=== PATIENT | female | born 1990 | race Caucasian/White ===

== ENCOUNTER 2019-10-11 16:32 | Emergency (ER) | payer SELFPAY ==
--- NOTE | 2019-10-11 17:22 | EDM.PDOC ---
ED HPI GENERAL MEDICAL PROBLEM - General Chief Complaint: ENT Problem Stated Complaint: INFECTION IN TOOTH Time Seen by Provider: 10/11/19 16:45 Source of Information: Reports: Patient History Limitations: Reports: No Limitations - History of Present Illness INITIAL COMMENTS - FREE TEXT/NARRATIVE: states she has had tooth ache for the past 3 days , getting worse right upper wisdom tooth still present infection , caries noted in the tooth area Now pain and swelling has spread to the right cheek took 3 tab of tylenol with no relieve - Related Data Allergies Allergy/AdvReac Type Severity Reaction Status Date / Time Penicillins Allergy Hives Verified 10/11/19 16:52 Sulfa (Sulfonamide Allergy Hives Verified 10/11/19 16:52 Antibiotics) Home Meds: Home Meds Chlorhexidine Gluconate [Peridex] 10 ml MM TID #473 mouthwash 10/11/19 [Rx] Clindamycin HCl 300 mg PO TID #30 capsule 10/11/19 [Rx] Hydrocodone/Acetaminophen [[place] 5-325 Tablet] 1 each PO Q6HR #6 tablet 10/11/19 [Rx] ED ROS ENT - Review of Systems Review Of Systems: Comprehensive ROS is negative, except as noted in HPI. ED EXAM, ENT - Physical Exam Exam: See Below Exam Limited By: No Limitations General Appearance: Alert, WD/WN Eye Exam: Bilateral Eye: EOMI, PERRL Ears: Normal External Exam Nose: Normal Mucousa Mouth/Throat: Dental Pain, Dental Tenderness (right upper Molar), Gum Swelling. No: Muffled Voice, Throat Pain, Throat Swelling, Tonsillar Erythema, Tonsillar Exudates, Tonsillar Swelling Head: Atraumatic, Normocephalic Neck: Supple, Non-Tender, Lymphadenopathy (R) (right sided) Respiratory/Chest: Lungs Clear, Normal Breath Sounds Cardiovascular: Regular Rate, Rhythm Neurological: Alert, Oriented, CN II-XII Intact Psychiatric: Normal Affect Course - Vital Signs Last Recorded V/S: Last Vital Signs Temp 37.2 C 10/11/19 16:40 Pulse 98 10/11/19 16:40 Resp 17 10/11/19 16:40 BP 117/69 10/11/19 16:40 Pulse Ox 99 10/11/19 16:40 Departure - Departure Time of Disposition: 17:30 Disposition: Home, Self-Care 01 Clinical Impression: Dental caries extending into dentin, Gingivitis, acute, non-plaque induced - Discharge Information *PRESCRIPTION DRUG MONITORING PROGRAM REVIEWED*: Not Applicable *COPY OF PRESCRIPTION DRUG MONITORING REPORT IN PATIENT LOUANN: Not Applicable Referrals: Juan Hines MD [Primary Care Provider] - Additional Instructions: Make appointment to see dentist as soon as possible Sepsis Event Note (ED) - Evaluation Sepsis Screening Result: No Definite Risk - Focused Exam Vital Signs: Vital Signs Temp Pulse Resp BP Pulse Ox 10/11/19 16:40 37.2 C 98 17 117/69 99
== END 2019-10-11 17:33 | disposition home or self-care (01) ==
LOC: FB.ED 16:32
DX: K02.9 Dental caries, unspecified (principal); K05.01 Acute gingivitis, non-plaque induced; Z88.0 Allergy status to penicillin; Z88.2 Allergy status to sulfonamides
CPT/HCPCS: 99282

== ENCOUNTER 2020-08-15 23:26 | Emergency (ER) | payer MEDICAID ==
[2020-08-15] MEDS ORDERED: Ibuprofen 600 MG Tab PO ONE (23:45)
--- NOTE | 2020-08-15 23:48 | EDM.PDOC ---
ED HPI GENERAL MEDICAL PROBLEM - General Chief Complaint: Lower Extremity Injury/Pain Stated Complaint: broken toe Time Seen by Provider: 08/15/20 23:45 Source of Information: Reports: Patient History Limitations: Reports: No Limitations - History of Present Illness INITIAL COMMENTS - FREE TEXT/NARRATIVE: Patient accidentally kicked her couch, heard a snap and is now complaining of left 5th toe pain. No other injuries. 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 ED EXAM, GENERAL - Physical Exam Exam: See Below Exam Limited By: No Limitations General Appearance: Alert, WD/WN, No Apparent Distress Throat/Mouth: No Airway Compromise Head: Atraumatic, Normocephalic Respiratory/Chest: No Respiratory Distress Peripheral Pulses: 3+: Dorsalis Pedis (L) Extremities: Normal Capillary Refill, Other (tenderness and swelling to left 5th toe) Neurological: Alert, Oriented, Normal Cognition, No Motor/Sensory Deficits Psychiatric: Normal Affect, Normal Mood Skin Exam: Warm, Dry, Intact Course - Vital Signs Last Recorded V/S: Last Vital Signs Temp 37.1 C 08/15/20 23:27 Pulse 92 08/15/20 23:27 Resp 18 08/15/20 23:27 BP 118/79 08/15/20 23:27 Pulse Ox 99 08/15/20 23:27 - Orders/Labs/Meds Orders: Active Orders 24 hr Category Date Time Status Toes Fifth Digit Lt T4 [CR] Stat Exams 08/15/20 23:41 Ordered Meds: Medications Discontinued Medications Generic Name Dose Route Start Last Admin Trade Name Drea PRN Reason Stop Dose Admin Ibuprofen 600 mg 08/15/20 23:45 08/15/20 23:49 Ibuprofen 600 Mg Tab PO 08/15/20 23:46 600 mg ONETIME ONE Administration - Radiology Interpretation Free Text/Narrative:: Left 5th Toe Xray: proximal phalanx fracture. (ED provider interpretation) - Re-Assessments/Exams Free Text/Narrative Re-Assessment/Exam: 08/15/20 23:55 left 4th & 5th toes paradise taped. Departure - Departure Time of Disposition: 23:55 Disposition: Home, Self-Care 01 Condition: Good Clinical Impression: Toe fracture, left Qualifiers: Encounter type: initial encounter Toe: lesser toe Fracture type: closed Phalanx: proximal Fracture alignment: displaced Qualified Code(s): S92.512A - Displaced fracture of proximal phalanx of left lesser toe(s), initial encounter for closed fracture - Discharge Information *PRESCRIPTION DRUG MONITORING PROGRAM REVIEWED*: No *COPY OF PRESCRIPTION DRUG MONITORING REPORT IN PATIENT LOUANN: Not Applicable Instructions: Toe Fracture, [id number], Crutch Use, Adult, [id number] Referrals: PCP,None [Primary Care Provider] - Forms: ED Department Discharge Additional Instructions: Take Ibuprofen as needed. Elevate the foot. Ice the area affected. Take OTC Ibuprofen 600 mg every 6 hours as needed to control the pain. Weight bear as tolerated. Follow up with your primary physician in 1 week. Sepsis Event Note (ED) - Evaluation Sepsis Screening Result: No Definite Risk - Focused Exam Vital Signs: Vital Signs Temp Pulse Resp BP Pulse Ox 08/15/20 23:27 37.1 C 92 18 118/79 99 - My Orders Last 24 Hours: My Active Orders 08/15/20 23:41 Toes Fifth Digit Lt T4 [CR] Stat - Assessment/Plan Last 24 Hours: My Active Orders 08/15/20 23:41 Toes Fifth Digit Lt T4 [CR] Stat
--- NOTE | 2020-08-18 10:14 | CR ---
LEFT FIFTH TOE INDICATION: Injury - kicked furniture. Four views of the left toes were obtained 08/15/20 - no comparisons. There is an oblique fracture through the proximal phalanx of the fifth toe extending from the mid shaft into the distal metaphysis with medial angulation at the fracture site and lateral offset of the distal fracture fragment of approximately 1 mm. There also appears to be plantar offset of the distal fracture fragment of approximately 1 mm. No other significant bone or joint abnormality was identified of an acute nature. There was noted what appears to be a fracture through the proximal metaphysis of the fifth metatarsal with endosteal sclerosis compatible with a healing fracture site. MTDD
== END 2020-08-16 00:11 | disposition home or self-care (01) ==
LOC: FB.ED 23:26
DX: S92.512A Displaced fracture of proximal phalanx of left lesser toe(s), initial encounter for closed fracture (principal); Z88.0 Allergy status to penicillin; Z88.2 Allergy status to sulfonamides; W22.8XXA Striking against or struck by other objects, initial encounter
CPT/HCPCS: 73660-T4; 99282; 99283-25; A9270-GY

== ENCOUNTER 2020-09-06 07:44 | Emergency (ER) | payer MEDICAID ==
[2020-09-06] MEDS ORDERED: Sodium Chloride 0.9% 1,000 ML IV ONE (08:05)
[2020-09-06] MEDS ORDERED: Ondansetron 4 MG/2 ML SDV IVPUSH PRN (08:07)
[2020-09-06] MEDS ORDERED: Doxycycline 100 MG in Sodium Chloride 0.9% 100 ML IV ONE (08:10)
[2020-09-06] MEDS ORDERED: Ketorolac 30 MG/ML SDV IVPUSH ONE (08:12)
--- NOTE | 2020-09-06 08:14 | EDM.PDOC ---
ED HPI GENERAL MEDICAL PROBLEM - General Chief Complaint: Respiratory Problem Stated Complaint: POSSIBLE SINUS INFECTION Time Seen by Provider: 09/06/20 07:50 Source of Information: Reports: Patient, Old Records, Provider History Limitations: Reports: No Limitations - History of Present Illness INITIAL COMMENTS - FREE TEXT/NARRATIVE: 2 week h/o upper respiratory symptoms including sinus pain, congestion, cough, fever, anorexia, N/V. She was tested for COVID yesterday and was negative. Onset: Gradual Treatments MANAGER DISCOVERY: Reports: Acetaminophen, Aspirin, NSAIDS Face/Facial Pain Score (Numeric/FACES): 8 - Related Data Allergies Allergy/AdvReac Type Severity Reaction Status Date / Time Penicillins Allergy Hives Verified 10/11/19 16:52 Sulfa (Sulfonamide Allergy Hives Verified 10/11/19 16:52 Antibiotics) Home Meds: Home Meds Cyclobenzaprine [Flexeril] 10 mg PO BEDTIME 08/15/20 [History] Doxycycline [Vibramycin] 100 mg PO BID #13 cap 09/06/20 [Rx] Ondansetron [Zofran ODT] 4 mg PO Q6H PRN #20 tab.dis 09/06/20 [Rx] Past Medical History - Past Health History Medical/Surgical History: Denies 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: Musculoskeletal History: Reports: Fibromyalgia Social & Family History - Family History Family Medical History: No Pertinent Family History - Caffeine Use Caffeine Use: Reports: Coffee, Soda ED ROS GENERAL - Review of Systems Review Of Systems: See Below Constitutional: Reports: Fever, Malaise HEENT: Reports: Sinus Problem, Throat Pain Respiratory: Reports: Cough, Sputum Cardiovascular: Reports: No Symptoms Endocrine: Reports: No Symptoms GI/Abdominal: Reports: Anorexia, Nausea, Vomiting : Reports: No Symptoms Musculoskeletal: Reports: Muscle Pain, Muscle Stiffness Skin: Reports: No Symptoms Neurological: Reports: No Symptoms Psychiatric: Reports: No Symptoms Hematologic/Lymphatic: Reports: No Symptoms Immunologic: Reports: No Symptoms ED EXAM, GENERAL - Physical Exam Exam: See Below Exam Limited By: No Limitations General Appearance: Alert, WD/WN, Mild Distress Nose: No Blood, Nasal Tenderness, Nasal Swelling, Nasal Drainage, Other (purlent discharge) Throat/Mouth: Inflammation Head: Atraumatic Neck: No: Lymphadenopathy (R), Lymphadenopathy (L), Tender Lateral, Thyromegaly Respiratory/Chest: No Respiratory Distress, Lungs Clear Cardiovascular: Normal Peripheral Pulses, Regular Rate, Rhythm, No Edema, No Murmur Peripheral Pulses: 2+: Radial (L), Radial (R), Dorsalis Pedis (L), Dorsalis Pedis (R) Neurological: Alert, Oriented Psychiatric: Anxious Skin Exam: Warm, Dry, Intact Lymphatic: No Adenopathy Course - Vital Signs Last Recorded V/S: Last Vital Signs Temp 37.3 C 09/06/20 07:45 Pulse 114 H 09/06/20 07:45 Resp 20 09/06/20 07:45 BP 119/78 09/06/20 07:45 Pulse Ox 95 09/06/20 07:45 - Orders/Labs/Meds Orders: Active Orders 24 hr Category Date Time Status Ondansetron [Zofran] Med 09/06/20 08:07 Active 4 mg IVPUSH Q4H PRN Medication Orders Ondansetron HCl (Ondansetron 4 Mg/2 Ml Sdv) 4 mg IVPUSH Q4H PRN PRN Reason: Nausea/Vomiting Last Admin: 09/06/20 08:20 Dose: 4 mg Documented by: [facility]: Medications Generic Name Dose Route Start Last Admin Trade Name Freq PRN Reason Stop Dose Admin Ondansetron HCl 4 mg 09/06/20 08:07 09/06/20 08:20 Ondansetron 4 Mg/2 Ml Sdv IVPUSH 4 mg Q4H PRN Administration Nausea/Vomiting Discontinued Medications Generic Name Dose Route Start Last Admin Trade Name Freq PRN Reason Stop Dose Admin Sodium Chloride 1,000 mls @ 999 mls/hr 09/06/20 08:05 09/06/20 08:15 Normal Saline IV 09/06/20 09:05 999 mls/hr .BOLUS ONE Administration Doxycycline Hyclate 100 mg/ 100 mls @ 100 mls/hr 09/06/20 08:10 09/06/20 08:38 Sodium Chloride IV 09/06/20 09:09 100 mls/hr ONETIME ONE Administration Ketorolac Tromethamine 30 mg 09/06/20 08:12 09/06/20 08:20 Ketorolac 30 Mg/Ml Sdv IVPUSH 09/06/20 08:13 30 mg ONETIME ONE Administration Departure - Departure Time of Disposition: 10:15 Disposition: Home, Self-Care 01 Condition: Good Clinical Impression: Sinusitis - Discharge Information *PRESCRIPTION DRUG MONITORING PROGRAM REVIEWED*: Not Applicable *COPY OF PRESCRIPTION DRUG MONITORING REPORT IN PATIENT LOUANN: Not Applicable Prescriptions: Doxycycline [Vibramycin] 100 mg PO BID #13 cap Ondansetron [Zofran ODT] 4 mg PO Q6H PRN #20 tab.dis PRN Reason: Nausea Instructions: Coping with Quitting Smoking, Sinusitis, Adult, [id number] Referrals: Juan Hines MD [Primary Care Provider] - Forms: ED Department Discharge Sepsis Event Note (ED) - Evaluation Sepsis Screening Result: No Definite Risk - Focused Exam Vital Signs: Vital Signs Temp Pulse Resp BP Pulse Ox 09/06/20 07:45 37.3 C 114 H 20 119/78 95 - Problem List & Annotations (1) Bacterial sinusitis SNOMED Code(s): 724497663 Code(s): J32.9 - CHRONIC SINUSITIS, UNSPECIFIED; B96.89 - OTH BACTERIAL AGENTS THE CAUSE OF DISEASES CLASSD [id number] Status: Acute Current Visit: Yes - Problem List Review Problem List Initiated/Reviewed/Updated: Yes - My Orders Last 24 Hours: My Active Orders 09/06/20 08:07 Ondansetron [Zofran] 4 mg IVPUSH Q4H PRN - Assessment/Plan Last 24 Hours: My Active Orders 09/06/20 08:07 Ondansetron [Zofran] 4 mg IVPUSH Q4H PRN
== END 2020-09-06 10:15 | disposition home or self-care (01) ==
LOC: FB.ED 07:44
DX: J32.9 Chronic sinusitis, unspecified (principal); Z88.0 Allergy status to penicillin; Z88.2 Allergy status to sulfonamides
CPT/HCPCS: 96365; 96375; 99283-25; J1885; J2405; J3490; J7030

== ENCOUNTER 2020-09-07 12:01 | Emergency (ER) | payer MEDICAID ==
[2020-09-07] MEDS ORDERED: Sodium Chloride 0.9% 1,000 ML IV ONE (12:41)
--- NOTE | 2020-09-07 12:47 | EDM.PDOC ---
ED HPI GENERAL MEDICAL PROBLEM - General Stated Complaint: SINUS INF-CLOGGED EAR ETC Time Seen by Provider: 09/07/20 12:44 Source of Information: Reports: Patient, Provider History Limitations: Reports: No Limitations - History of Present Illness INITIAL COMMENTS - FREE TEXT/NARRATIVE: 30-year-old lady came to the emergency department for evaluation of upper respiratory/sinus infection. She was seen via telemedicine last week at the primary care physician's office and tested negative for Covid. She came into the emergency department yesterday and was found to have purulent sinus discharge and diagnosed with bacterial sinusitis. Secondary to allergies to penicillins and sulfonamides she was started on doxycycline. She returned today because of increased pain in her ears bilaterally, right greater than left. Decreased hearing bilaterally, right greater than left. And subjective swelling of her right temporal area. She continues to have nausea and vomiting. 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: Musculoskeletal History: Reports: Fibromyalgia Social & Family History - Family History Family Medical History: No Pertinent Family History - Caffeine Use Caffeine Use: Reports: Coffee ED ROS GENERAL - Review of Systems Review Of Systems: See Below Constitutional: Reports: Fever, Chills HEENT: Reports: Ear Pain, Nose Pain, Throat Pain Respiratory: Reports: Cough Cardiovascular: Reports: No Symptoms Endocrine: Reports: No Symptoms GI/Abdominal: Reports: Constipation, Nausea, Vomiting : Reports: No Symptoms Musculoskeletal: Reports: Joint Pain, Muscle Pain Skin: Reports: Erythema Neurological: Reports: No Symptoms Psychiatric: Reports: No Symptoms Hematologic/Lymphatic: Reports: No Symptoms Immunologic: Reports: No Symptoms ED EXAM, GENERAL - Physical Exam Exam: See Below Exam Limited By: No Limitations General Appearance: Alert, WD/WN, Anxious Ears: Other (Bilateral tympanic membranes are bulging, erythema, intact) Ear Exam: Bilateral Ear: Erythema, TM Red, TM Bulging Nose: Nasal Tenderness Throat/Mouth: Inflammation Neck: No: Lymphadenopathy (R) Respiratory/Chest: No Respiratory Distress, Lungs Clear Cardiovascular: Normal Peripheral Pulses, Regular Rate, Rhythm, No Edema Neurological: Alert, Oriented Psychiatric: Anxious Skin Exam: Warm, Dry Course - Vital Signs Text/Narrative:: Rapid strep test of oropharynx was negative. CT scan of the sinuses showed mild mucosal thickening in the maxillary sinuses with moderate opacification of the ethmoid air cells. There was no mastoid pathology and no air-fluid levels noted. She received 1 L normal saline. Patient instructed to continue to take doxycycline and use antihistamine and nasal steroids as directed. Patient was given Zofran for nausea yesterday. - Orders/Labs/Meds Orders: Active Orders 24 hr Category Date Time Status Max Facial Sinus wo Cont [CT] Stat Exams 09/07/20 12:40 Taken Labs: Laboratory Tests 09/07/20 09/07/20 Range/Units 12:45 12:48 WBC 8.0 (3.0-10.3) x10-3/uL RBC 3.96 (3.60-5.20) x10(6)uL Hgb 12.5 (11.4-15.5) g/dL Hct 37.4 (34.2-48.2) % MCV 94.4 (76.7-100.5) fL MCH 31.6 (23.9-33.9) pg MCHC 33.5 (31.9-34.8) g/dL RDW 12.0 L (12.3-16.5) % Plt Count 234 (151-488) x10(3)uL MPV 9.0 (7.1-12.4) fL Neut % (Auto) 73.2 (30.8-76.2) % Lymph % (Auto) 18.2 L (18.4-52.1) % [place] % (Auto) 7.1 (4.4-15.7) % Eos % (Auto) 1.1 (0.6-8.1) % Baso % (Auto) 0.4 (0.2-1.5) % Neut # (Auto) 5.9 (1.5-6.3) x10-3/uL Lymph # (Auto) 1.5 (1.0-4.4) x10-3/uL [place] # (Auto) 0.6 (0.3-1.0) x10-3/uL Eos # (Auto) 0.1 (0.0-0.8) x10-3/uL Baso # (Auto) 0.0 (0.0-0.1) x10-3/uL Group A Strep (PCR) Not detected (NOT DETECT) Meds: Medications Discontinued Medications Generic Name Dose Route Start Last Admin Trade Name Freq PRN Reason Stop Dose Admin Sodium Chloride 1,000 mls @ 999 mls/hr 09/07/20 12:41 09/07/20 13:45 Normal Saline IV 09/07/20 13:41 999 mls/hr .BOLUS ONE Administration Departure - Departure Time of Disposition: 14:54 Disposition: Home, Self-Care 01 Clinical Impression: Bacterial sinusitis - Discharge Information *PRESCRIPTION DRUG MONITORING PROGRAM REVIEWED*: Not Applicable *COPY OF PRESCRIPTION DRUG MONITORING REPORT IN PATIENT LOUANN: Not Applicable Referrals: Juan Hines MD [Primary Care Provider] - - My Orders Last 24 Hours: My Active Orders 09/07/20 12:40 Max Facial Sinus wo Cont [CT] Stat - Assessment/Plan Last 24 Hours: My Active Orders 09/07/20 12:40 Max Facial Sinus wo Cont [CT] Stat
== END 2020-09-07 15:11 | disposition home or self-care (01) ==
LOC: FB.ED 12:01
DX: J32.9 Chronic sinusitis, unspecified (principal); B96.89 Other specified bacterial agents as the cause of diseases classified elsewhere; Z88.0 Allergy status to penicillin; Z88.2 Allergy status to sulfonamides
CPT/HCPCS: 36415; 70486; 85025; 87651-QW; 99284-25; J7030

== ENCOUNTER 2021-01-04 08:16 | Emergency (ER) | payer MEDICAID ==
[2021-01-04] MEDS ORDERED: Codeine/guaiFENesin 100mg-10 MG/5 ML Soln 118 ML Bottle PO ONE (08:17)
--- NOTE | 2021-01-04 09:07 | EDM.PDOC ---
ED HPI GENERAL MEDICAL PROBLEM - General Chief Complaint: Respiratory Problem Stated Complaint: COUGH?? Time Seen by Provider: 01/04/21 08:30 Source of Information: Reports: Patient, Provider - History of Present Illness INITIAL COMMENTS - FREE TEXT/NARRATIVE: 30-year-old lady came to the clinic after she got off her nighttime shift for evaluation and treatment of a severe cough. She was seen by her primary care provider earlier in the week and diagnosed with a bacterial sinusitis and treated with antibiotics, decongestants, and Tessalon Perles. Despite treatment she has continued to have increasing and severe cough. She has not had fever, chills, change in bowel or bladder habits. However, her cough has been so severe at times that she has nearly vomited. She has chest pain associated with the cough and has difficulty sleeping. 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: Musculoskeletal History: Reports: Fibromyalgia Social & Family History - Family History Family Medical History: No Pertinent Family History - Tobacco Use Month/Year Tobacco Last Used: over 10 years - Caffeine Use Caffeine Use: Reports: Coffee, Tea - Alcohol Use Date of Last Drink: 11/05/20 - Recreational Drug Use Recreational Drug Use: No ED ROS GENERAL - Review of Systems Review Of Systems: See Below Constitutional: Reports: Fatigue HEENT: Reports: Rhinitis, Sinus Problem, Throat Pain Respiratory: Reports: Cough, Sputum Cardiovascular: Reports: No Symptoms Endocrine: Reports: No Symptoms GI/Abdominal: Reports: Nausea : Reports: No Symptoms Musculoskeletal: Reports: No Symptoms Skin: Reports: No Symptoms Neurological: Reports: No Symptoms Psychiatric: Reports: No Symptoms Hematologic/Lymphatic: Reports: No Symptoms Immunologic: Reports: No Symptoms ED EXAM, GENERAL - Physical Exam Exam: See Below Exam Limited By: Intoxication General Appearance: Alert, No Apparent Distress Eye Exam: Bilateral Eye: EOMI Nose: Nasal Tenderness Head: Atraumatic, Normocephalic Neck: Normal Inspection Respiratory/Chest: No Respiratory Distress, Lungs Clear Cardiovascular: Regular Rate, Rhythm Peripheral Pulses: 2+: Radial (L), Radial (R), Dorsalis Pedis (L), Dorsalis Pedis (R) GI/Abdominal: Normal Bowel Sounds, Soft, Non-Tender Back Exam: Normal Inspection Extremities: Normal Inspection Neurological: Alert, Oriented, CN II-XII Intact, Normal Cognition, Normal Gait Psychiatric: Normal Affect, Normal Mood Skin Exam: Warm, Dry, Intact Course - Vital Signs Last Recorded V/S: Last Vital Signs Temp 36.8 C 01/04/21 08:16 Pulse 18 L 01/04/21 08:16 Resp 18 01/04/21 08:16 BP 134/85 01/04/21 08:16 Pulse Ox 98 01/04/21 08:16 Departure - Departure Time of Disposition: 09:05 Disposition: Home, Self-Care 01 Condition: Good Clinical Impression: Upper respiratory infection - Discharge Information *PRESCRIPTION DRUG MONITORING PROGRAM REVIEWED*: Not Applicable *COPY OF PRESCRIPTION DRUG MONITORING REPORT IN PATIENT LOUANN: Not Applicable Instructions: Upper Respiratory Infection, Adult, [id number] Referrals: Juan Hines MD [ED Physician] - Additional Instructions: Patient instructed to ensure that she continues outpatient treatment as directed including finishing antibiotics. Patient directed to take cough syrup only as directed. Patient strongly encouraged to follow-up with her primary care physician. Sepsis Event Note (ED) - Focused Exam Vital Signs: Vital Signs Temp Pulse Resp BP Pulse Ox 01/04/21 08:16 36.8 C 18 L 18 134/85 98
== END 2021-01-04 09:15 | disposition home or self-care (01) ==
LOC: FB.ED 08:16
DX: J06.9 Acute upper respiratory infection, unspecified (principal); Z88.0 Allergy status to penicillin; Z88.2 Allergy status to sulfonamides; Z72.0 Tobacco use
CPT/HCPCS: 99283; A9270-GY

== ENCOUNTER 2021-02-22 13:08 | Emergency (ER) | payer SELFPAY ==
[2021-02-22] MEDS ORDERED: Codeine/guaiFENesin 100mg-10 MG/5 ML Soln 118 ML Bottle PO ONE (13:09)
--- NOTE | 2021-02-22 13:58 | EDM.PDOC ---
ED HPI GENERAL MEDICAL PROBLEM - General Chief Complaint: ENT Problem Stated Complaint: COUGH, VOMITTING FORM COUGH Time Seen by Provider: 02/22/21 13:15 Source of Information: Reports: Patient - History of Present Illness INITIAL COMMENTS - FREE TEXT/NARRATIVE: 30-year-old lady came to the emergency department with classic flulike symptoms. He works for the [employer] and is routinely tested for Covid and has not been positive. However, over the last several days she has had significant fatigue with cough, congestion, headache, photophobia, arthralgias, myalgias. She was diagnosed with a dental infection and due to allergies was started on clindamycin last week. However, she continues to have chronic problems with sinusitis, rhinorrhea, sinus pain with associated head ache. She thinks that the headache she has is associated with her sinus problems. She also has a consistent cough. She thinks that she has had some nausea and vomiting associated with the cough but not necessarily nausea in her stomach. She states that she felt "faint." She states she has had vertigo in the past but this time she has felt dizzy like she was going to faint. He has had some diarrhea after starting clindamycin. She states that her sides hurt and that she thinks it is her kidneys that hurt. Has been taking Tylenol and clindamycin as directed. She has not done anything else specific to alleviate the symptoms. The symptoms became severe enough to come to the emergency room yesterday. She physically came to the emergency room today because of the faintness. Generalized Pain Score (Numeric/FACES): 6 - Related Data Allergies Allergy/AdvReac Type Severity Reaction Status Date / Time Penicillins Allergy Hives Verified 01/04/21 08:33 Sulfa (Sulfonamide Allergy Hives Verified 01/04/21 08:33 Antibiotics) Home Meds: Home Meds Cyclobenzaprine [Flexeril] 10 mg PO BEDTIME 08/15/20 [History] Doxycycline [Vibramycin] 100 mg PO BID #13 cap 09/06/20 [Rx] Ondansetron [Zofran ODT] 4 mg PO Q6H PRN #20 tab.dis 09/06/20 [Rx] Benzonatate [Tessalon Perles] 100 mg PO TID #30 cap 02/22/21 [Rx] Past Medical History - Past Health History Medical/Surgical History: Denies Medical/Surgical History HEENT History: Reports: Sinusitis 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: Reports: Musculoskeletal History: Reports: Fibromyalgia - Past Surgical History HEENT Surgical History: Reports: None Social & Family History - Family History Family Medical History: No Pertinent Family History - Tobacco Use Tobacco Use Status *Q: Current Every Day Tobacco User Years of Tobacco use: 12 Packs/Tins Daily: 0.1 Used Tobacco, but Quit: No Second Hand Smoke Exposure: No - Caffeine Use Caffeine Use: Reports: Coffee - Recreational Drug Use Recreational Drug Use: No ED ROS ENT - Review of Systems Review Of Systems: See Below Constitutional: Reports: Weakness HEENT: Reports: Dental Pain, Eye Pain, Rhinitis, Sinus Problem, Throat Pain, Other (Dizziness/faintness) Respiratory: Reports: Cough Cardiovascular: Reports: Lightheadedness Endocrine: Reports: No Symptoms GI/Abdominal: Reports: Diarrhea, Vomiting : Reports: Flank Pain Musculoskeletal: Reports: Joint Pain, Muscle Pain Skin: Reports: No Symptoms Neurological: Reports: Weakness Psychiatric: Reports: No Symptoms Hematologic/Lymphatic: Reports: No Symptoms Immunologic: Reports: No Symptoms ED EXAM, ENT - Physical Exam Exam: See Below Exam Limited By: No Limitations General Appearance: Alert, No Apparent Distress Eye Exam: Bilateral Eye: EOMI, PERRL Ears: Normal External Exam, Normal Canal, Normal TMs Nose: Nasal Discharge, Nasal Swelling, Nasal Tenderness, Injected Turbinates Mouth/Throat: Dental Tenderness, Other (Small abscess just above the upper front teeth midline) Head: Atraumatic, Normocephalic Neck: Normal Inspection, Supple, Non-Tender Respiratory/Chest: No Respiratory Distress, Lungs Clear Cardiovascular: Normal Peripheral Pulses, Regular Rate, Rhythm GI/Abdominal: Normal Bowel Sounds, Soft, Non-Tender Back: CVA Tenderness (R), CVA Tenderness (L) Extremities: Normal Inspection Neurological: Alert, Oriented, CN II-XII Intact, Normal Cognition, Normal Gait Psychiatric: Normal Affect Skin: Warm, Dry Course - Vital Signs Text/Narrative:: Review of labs and virus testing are all normal/within normal limits. Patient likely has viral upper respiratory infection superimposed on chronic bacterial sinusitis. She is currently being treated with clindamycin for oral/dental infection. Patient will be given guaifenesin/codeine cough syrup and sent a prescription for Tessalon Perles. Nonclean-catch urinalysis is grossly negative. Last Recorded V/S: Last Vital Signs Temp 37.0 C 02/22/21 13:25 Pulse 99 02/22/21 13:25 Resp 18 02/22/21 13:25 BP 141/87 H 02/22/21 13:25 Pulse Ox 99 02/22/21 13:25 - Orders/Labs/Meds Labs: Laboratory Tests 02/22/21 02/22/21 02/22/21 Range/Units 13:30 13:30 13:30 WBC 7.2 (3.0-10.3) x10-3/uL RBC 4.11 (3.60-5.20) x10(6)uL Hgb 12.7 (11.4-15.5) g/dL Hct 38.2 (34.2-48.2) % MCV 93.1 (76.7-100.5) fL MCH 30.9 (23.9-33.9) pg MCHC 33.2 (31.9-34.8) g/dL RDW 12.4 (12.3-16.5) % Plt Count 240 (151-488) x10(3)uL MPV 8.7 (7.1-12.4) fL Neut % (Auto) 75.6 (30.8-76.2) % Lymph % (Auto) 18.4 (18.4-52.1) % [place] % (Auto) 4.6 (4.4-15.7) % Eos % (Auto) 1.1 (0.6-8.1) % Baso % (Auto) 0.3 (0.2-1.5) % Neut # (Auto) 5.5 (1.5-6.3) x10-3/uL Lymph # (Auto) 1.3 (1.0-4.4) x10-3/uL [place] # (Auto) 0.3 (0.3-1.0) x10-3/uL Eos # (Auto) 0.1 (0.0-0.8) x10-3/uL Baso # (Auto) 0.0 (0.0-0.1) x10-3/uL Sodium 139 (135-145) mmol/L Potassium 3.9 (3.5-5.3) mmol/L Chloride 101 (100-110) mmol/L Carbon Dioxide 27 (21-32) mmol/L BUN 9 (7-18) mg/dL Creatinine 0.8 (0.55-1.02) mg/dL Est Cr Clr Drug Dosing 87.99 mL/min Estimated GFR (MDRD) > 60 (>60) BUN/Creatinine Ratio 11.3 (9-20) Glucose 91 (80-116) mg/dL Calcium 8.3 L (8.6-10.2) mg/dL Total Bilirubin 0.4 (0.1-1.3) mg/dL AST 21 (5-25) IU/L ALT 32 (12-36) U/L Alkaline Phosphatase 69 (56-112) IU/L Total Protein 7.5 (6.0-8.0) g/dL Albumin 3.9 (3.5-5.2) g/dL Globulin 3.6 g/dL Albumin/Globulin Ratio 1.1 Urine Color (YELLOW) Urine Appearance (CLEAR) Urine pH (5.0-6.5) Ur Specific [place] (1.010-1.025) Urine Protein (NEGATIVE) mg/dL Urine Glucose (UA) (NORMAL) mg/dL Urine Ketones (NEGATIVE) mg/dL Urine Occult Blood (NEGATIVE) Urine Nitrite (NEGATIVE) Urine Bilirubin (NEGATIVE) Urine Urobilinogen (NEGATIVE) mg/dL Ur Leukocyte Esterase (NEGATIVE) Urine WBC (0-5) Ur Squamous Epith Cells (NS,R,O) Urine Bacteria (NS) Influenza Type A RNA Negative (NEGATIVE) Influenza Type B RNA Negative (NEGATIVE) SARS-CoV-2 RNA (GISELLE) Negative (NEGATIVE) 02/22/21 Range/Units 14:10 WBC (3.0-10.3) x10-3/uL RBC (3.60-5.20) x10(6)uL Hgb (11.4-15.5) g/dL Hct (34.2-48.2) % MCV (76.7-100.5) fL MCH (23.9-33.9) pg MCHC (31.9-34.8) g/dL RDW (12.3-16.5) % Plt Count (151-488) x10(3)uL MPV (7.1-12.4) fL Neut % (Auto) (30.8-76.2) % Lymph % (Auto) (18.4-52.1) % [place] % (Auto) (4.4-15.7) % Eos % (Auto) (0.6-8.1) % Baso % (Auto) (0.2-1.5) % Neut # (Auto) (1.5-6.3) x10-3/uL Lymph # (Auto) (1.0-4.4) x10-3/uL [place] # (Auto) (0.3-1.0) x10-3/uL Eos # (Auto) (0.0-0.8) x10-3/uL Baso # (Auto) (0.0-0.1) x10-3/uL Sodium (135-145) mmol/L Potassium (3.5-5.3) mmol/L Chloride (100-110) mmol/L Carbon Dioxide (21-32) mmol/L BUN (7-18) mg/dL Creatinine (0.55-1.02) mg/dL Est Cr Clr Drug Dosing mL/min Estimated GFR (MDRD) (>60) BUN/Creatinine Ratio (9-20) Glucose (80-116) mg/dL Calcium (8.6-10.2) mg/dL Total Bilirubin (0.1-1.3) mg/dL AST (5-25) IU/L ALT (12-36) U/L Alkaline Phosphatase (56-112) IU/L Total Protein (6.0-8.0) g/dL Albumin (3.5-5.2) g/dL Globulin g/dL Albumin/Globulin Ratio Urine Color Yellow (YELLOW) Urine Appearance Clear (CLEAR) Urine pH 7.0 H (5.0-6.5) Ur Specific [place] 1.010 (1.010-1.025) Urine Protein Negative (NEGATIVE) mg/dL Urine Glucose (UA) Normal (NORMAL) mg/dL Urine Ketones Negative (NEGATIVE) mg/dL Urine Occult Blood Negative (NEGATIVE) Urine Nitrite Negative (NEGATIVE) Urine Bilirubin Negative (NEGATIVE) Urine Urobilinogen Normal (NEGATIVE) mg/dL Ur Leukocyte Esterase Negative (NEGATIVE) Urine WBC 0-5 (0-5) Ur Squamous Epith Cells Occasional (NS,R,O) Urine Bacteria Few H (NS) Influenza Type A RNA (NEGATIVE) Influenza Type B RNA (NEGATIVE) SARS-CoV-2 RNA (GISELLE) (NEGATIVE) Departure - Departure Time of Disposition: 14:39 Disposition: Home, Self-Care 01 Condition: Good Clinical Impression: Viral URI with cough - Discharge Information *PRESCRIPTION DRUG MONITORING PROGRAM REVIEWED*: Not Applicable *COPY OF PRESCRIPTION DRUG MONITORING REPORT IN PATIENT LOUANN: Not Applicable Instructions: Viral Respiratory Infection, [id number] Referrals: Juan Hines MD [Primary Care Provider] - Forms: ED Department Discharge Additional Instructions: Patient instructed to continue to take antibiotics as directed for your dental /oral infection. If you continue to have diarrhea you should see your primary care physician to determine if you are developing a antibiotic induced diarrhea such as C. difficile. Take cough syrup as directed. You can use Tessalon Perles with this cough syrup but hopefully you will not need it. Please do not overdose on Mucinex/guaifenesin. There is guaifenesin in your cough syrup. Drink plenty of fluids and follow-up with your primary care physician. Sepsis Event Note (ED) - Evaluation Sepsis Screening Result: No Definite Risk - Focused Exam Vital Signs: Vital Signs Temp Pulse Resp BP Pulse Ox 02/22/21 13:25 37.0 C 99 18 141/87 H 99
[2021-02-22 14:18] LABS: CORONAVIRUS COVID-19 NAA NEGATIVE (NEGATIVE)
== END 2021-02-22 14:50 | disposition home or self-care (01) ==
LOC: FB.ED 13:08
DX: J06.9 Acute upper respiratory infection, unspecified (principal); Z20.822 Contact with and (suspected) exposure to COVID-19; Z88.0 Allergy status to penicillin; Z72.0 Tobacco use; Z88.2 Allergy status to sulfonamides
CPT/HCPCS: 0240U; 36415; 80053; 81001; 85025; 99283; A9270-GY

== ENCOUNTER 2021-05-09 03:00 | Emergency (ER) | payer BC | END 2021-05-09 04:20 | disposition home or self-care (01) | LOC: FB.ED 03:00 | DX: R07.89 Other chest pain (principal); Z88.0 Allergy status to penicillin; Z88.2 Allergy status to sulfonamides | CPT/HCPCS: 36415; 71046; 80053; 84484; 85025; 85379; 93005; 93010; 99282; 99285-25 ==

== ENCOUNTER 2021-11-24 10:08 | Emergency (ER) | payer BC | END 2021-11-24 12:29 | disposition home or self-care (01) | LOC: FB.ED 10:08 | DX: U07.1 COVID-19 (principal); K21.9 Gastro-esophageal reflux disease without esophagitis | CPT/HCPCS: 96360; 96361; 99283-25 ==

== ENCOUNTER 2022-01-18 08:12 | Emergency (ER) | payer BC ==
[2022-01-18] MEDS ORDERED: Ketorolac 30 MG/ML SDV IM STA (08:47)
[2022-01-18 09:11] LABS: ESTIMATED GFR 100 mL/min (>60)
== END 2022-01-18 10:49 | disposition home or self-care (01) ==
LOC: FB.ED 08:12
DX: R07.89 Other chest pain (principal); Z88.0 Allergy status to penicillin; Z88.2 Allergy status to sulfonamides
CPT/HCPCS: 36415; 71045; 80053; 84484; 85025; 85379; 93005; 96372; 99285; J1885

== ENCOUNTER 2022-01-30 13:27 | Emergency (ER) | payer BC ==
[2022-01-30 15:00] LABS: ESTIMATED GFR 118 mL/min (>60)
[2022-01-30] MEDS ORDERED: predniSONE 20 MG Tab PO ONE (15:27)
== END 2022-01-30 15:55 | disposition home or self-care (01) ==
LOC: FB.ED 13:27
DX: M94.0 Chondrocostal junction syndrome [Tietze] (principal); E16.2 Hypoglycemia, unspecified; Z88.0 Allergy status to penicillin; Z88.2 Allergy status to sulfonamides; Z87.891 Personal history of nicotine dependence
CPT/HCPCS: 36415; 71045; 80053; 81001; 82947; 84484; 85025; 85379; 86140; 93005; 99285; J7512

== ENCOUNTER 2023-05-08 23:11 | Emergency (ER) | payer BC, MEDICARE ==
[2023-05-09 00:02] LABS: BASOPHILS PERCENT AUTO 0.4 % (0.2-1.5); BLOOD UREA NITROGEN,BUN 15 mg/dL (7-18); BUN/CREATININE RATIO 18.8 (9-20); CALCIUM 9.4 mg/dL (8.6-10.2); CARBON DIOXIDE,CO2 24 mmol/L (21-32); CHLORIDE,CL 99 mmol/L (100-110); CREATININE 0.8 mg/dL (0.55-1.02); EOSINOPHILS ABSOLUTE AUTO 0.1 x10-3/uL (0.0-0.8); EOSINOPHILS PERCENT AUTO 0.7 % (0.6-8.1); ESTIMATED GFR 99 mL/min (>60); GLUCOSE RANDOM 105 mg/dL (80-116); HEMATOCRIT 39.1 % (34.2-48.2); HEMOGLOBIN 13.7 g/dL (11.4-15.5); LYMPHOCYTES ABSOLUTE AUTO 2.8 x10-3/uL (1.0-4.4); MEAN CORPUSCULAR HEMOGLOBIN 31.5 pg (23.9-33.9); MEAN CORPUSCULAR HGB CONC 35.1 g/dL (31.9-34.8); MEAN CORPUSCULAR VOLUME 89.6 fL (76.7-100.5); MEAN PLATELET VOLUME 8.7 fL (7.1-12.4); MONOCYTES ABSOLUTE AUTO 0.6 x10-3/uL (0.3-1.0); MONOCYTES PERCENT AUTO 6.1 % (4.4-15.7); NEUTROPHILS ABSOLUTE AUTO 6.1 x10-3/uL (1.5-6.3); NEUTROPHILS PERCENT AUTO 63.8 % (30.8-76.2); PLATELET COUNT,PLT 280 x10(3)uL (151-488); POTASSIUM,K 3.9 mmol/L (3.5-5.3); RED BLOOD CELL COUNT 4.36 x10(6)uL (3.60-5.20); RED CELL DISTRIBUTION WIDTH 12.6 % (12.3-16.5); SODIUM,NA 135 mmol/L (135-145); WHITE BLOOD CELL COUNT,WBC 9.6 x10-3/uL (3.0-10.3)
[2023-05-09 00:08] LABS: A/G RATIO 1.1; ALANINE AMINOTRANSFERASE,ALT 49 U/L (12-36); ALBUMIN 4.1 g/dL (3.5-5.2); ALKALINE PHOSPHATASE 69 IU/L (56-112); ASPARTATE AMNIOTRANSFERASE,AST 14 IU/L (5-25); BILIRUBIN TOTAL 0.5 mg/dL (0.1-1.3); MAGNESIUM 2.2 mg/dL (1.8-2.5)
[2023-05-09 00:11] LABS: C-REACTIVE PROTEIN < 0.50 mg/dL (<0.50); TROPONIN I < 4.0 pg/mL (4.0-60.3)
== END 2023-05-09 01:10 | disposition home or self-care (01) ==
LOC: FB.ED 23:11
DX: R07.9 Chest pain, unspecified (principal); J32.9 Chronic sinusitis, unspecified; F41.9 Anxiety disorder, unspecified; Z88.0 Allergy status to penicillin; Z88.2 Allergy status to sulfonamides; Z79.899 Other long term (current) drug therapy; Z87.891 Personal history of nicotine dependence
CPT/HCPCS: 36415; 71046; 80053; 83735; 84484; 85025; 85379; 86140; 93005; 99285